=== PATIENT | female | born 1965 | race Caucasian/White ===

== ENCOUNTER → 2018-07-15 10:17 | Outpatient (CLI) | payer BC, SELFPAY ==
[2018-07-18 09:01] LABS: HPV Reflexed? NOT INDICATED
== END ==
PROVIDERS: Visit Provider Obstetrics & Gynecology
DX: Z12.4 Encounter for screening for malignant neoplasm of cervix (principal)
CPT/HCPCS: 88175; G0145

== ENCOUNTER → 2018-09-05 08:18 | Outpatient (CLI) | payer BC, SELFPAY ==
--- NOTE | 2018-09-05 08:20 | BI_ITS ---
MAMMOGRAPHY - BILATERAL SCREENING REASON FOR EXAM: Female, 52 years old. Routine annual screening examination. PERTINENT HISTORY: Aunts with breast cancer. TECHNIQUE: Digital bilateral breast harris (3D mammographic acquisition) in the CC and MLO projections. 2-D mediolateral oblique (MLO) and craniocaudad (CC) views of both breasts were obtained. CAD: Full Field Digital Mammography with Computer Added Detection was performed. COMPARISON: Comparison is made with prior examination dated August 15, 2017 and August 06, 2016. FINDINGS: Breast Composition: There are scattered areas of fibroglandular density. There are no dominant masses or suspicious calcifications. Stable small bilateral axillary lymph nodes. No other significant abnormalities are identified. There has been no significant change since the prior study. BI/SCREENING MAMM (CAD), BILAT IMPRESSION: Stable bilateral screening mammogram. Yearly follow-up mammogram recommended. (A) ASSESSMENT CATEGORY: BIRADS Category 2: Benign. A letter regarding these results will be sent to the patient by the facility within 30 days. Approximately 10% of breast cancers are not detected by mammography. A normal mammogram should not delay biopsy of a clinically suspicious abnormality. [id number] Electronically Signed: Oliverio Sauceda MD at 9:36 EST Tel [phone], Service support ,
== END ==
PROVIDERS: Family Provider Family Medicine; PCP Family Medicine; Referring Provider Obstetrics & Gynecology; Visit Provider Obstetrics & Gynecology
DX: Z12.31 Encounter for screening mammogram for malignant neoplasm of breast (principal)
CPT/HCPCS: 77063; 77067

== ENCOUNTER → 2019-07-30 | Outpatient (CLI) | payer BC, SELFPAY ==
[2019-08-03 16:07] LABS: Age Gdln ACOG Testing 30-65 (.)
[2019-08-03 18:51] LABS: HPV APTIMA, High Risk Negative (Negative); HPV Reflexed? YES, CHARGE PATIENT
== END | disposition home or self-care (01) ==
LOC: LABSPEC 09:25
PROVIDERS: Family Provider Family Medicine; PCP Family Medicine; Referring Provider Obstetrics & Gynecology; Visit Provider Obstetrics & Gynecology
DX: Z12.4 Encounter for screening for malignant neoplasm of cervix (principal)
CPT/HCPCS: 87624; 88175; G0145

== ENCOUNTER → 2019-09-07 07:58 | Outpatient (CLI) | payer BC, SELFPAY ==
--- NOTE | 2019-09-07 08:00 | BI_ITS ---
MAMMOGRAPHY - BILATERAL SCREENING REASON FOR EXAM: Female, 53 years old. Routine annual screening examination. PERTINENT HISTORY: Aunts with breast cancer. TECHNIQUE: Digital bilateral breast alvaro (3D mammographic acquisition) in the CC and MLO projections. 2-D mediolateral oblique (MLO) and craniocaudad (CC) views of both breasts were obtained. CAD: Full Field Digital Mammography with Computer Added Detection was performed. COMPARISON: Comparison is made with prior examination dated September 05, 2018 and August 15, 2017. FINDINGS: Breast Composition: There are scattered areas of fibroglandular density. There are no dominant masses or suspicious calcifications. Stable small benign-appearing bilateral axillary lymph nodes. No other significant abnormalities are identified. There has been no significant change since the prior study. BI/SCREEN MAMM (CAD) W/ALVARO BILAT IMPRESSION: Stable bilateral screening mammogram. Yearly follow-up mammogram recommended. (A) ASSESSMENT CATEGORY: BIRADS Category 2: Benign. A letter regarding these results will be sent to the patient by the facility within 30 days. Approximately 10% of breast cancers are not detected by mammography. A normal mammogram should not delay biopsy of a clinically suspicious abnormality. [id number] Electronically Signed: Oliverio Sauceda, at 10:22 EST , Service support ,
== END ==
PROVIDERS: Family Provider Family Medicine; PCP Family Medicine; Referring Provider Obstetrics & Gynecology; Visit Provider Obstetrics & Gynecology
DX: Z12.31 Encounter for screening mammogram for malignant neoplasm of breast (principal)
CPT/HCPCS: 77063; 77067

== ENCOUNTER → 2020-08-05 09:11 | Outpatient (CLI) | payer BC, SELFPAY ==
[2020-08-10 13:12] LABS: HPV APTIMA, High Risk Negative (Negative)
== END ==
PROVIDERS: PCP Family Medicine; Visit Provider Obstetrics & Gynecology
DX: Z12.4 Encounter for screening for malignant neoplasm of cervix (principal)
CPT/HCPCS: 87624; 88175; G0145

== ENCOUNTER → 2020-09-09 08:15 | Outpatient (CLI) | payer BC, SELFPAY ==
--- NOTE | 2020-09-09 08:18 | BI_ITS ---
MAMMOGRAPHY - BILATERAL SCREENING REASON FOR EXAM: Female, 54 years old. Routine annual screening examination. PERTINENT HISTORY: Aunts with breast cancer. TECHNIQUE: Digital bilateral breast alvaro (3D mammographic acquisition) in the CC and MLO projections. 2-D mediolateral oblique (MLO) and craniocaudad (CC) views of both breasts were obtained. CAD: Full Field Digital Mammography with Computer Added Detection was performed. COMPARISON: Comparison is made with prior study dated 09/07/2019 and 09/05/2018. FINDINGS: Breast Composition: There are scattered areas of fibroglandular density. There are no dominant masses or suspicious calcifications. Stable small benign appearing bilateral axillary lymph nodes. No other significant abnormalities are identified. There has been no significant change since the prior study. BI/SCREEN MAMM (CAD) W/ALVARO BILAT IMPRESSION: Stable bilateral screening mammogram. Yearly follow-up mammogram recommended. (A) ASSESSMENT CATEGORY: BIRADS Category 2: Benign. A letter regarding these results will be sent to the patient by the facility within 30 days. Approximately 10% of breast cancers are not detected by mammography. A normal mammogram should not delay biopsy of a clinically suspicious abnormality. [id number] Electronically Signed: Oliverio Sauceda, at 10:42 EST , Service support ,
== END ==
PROVIDERS: PCP Family Medicine; Referring Provider Obstetrics & Gynecology; Visit Provider Obstetrics & Gynecology
DX: Z12.31 Encounter for screening mammogram for malignant neoplasm of breast (principal)
CPT/HCPCS: 77063; 77067

== ENCOUNTER → 2021-08-07 15:04 | Outpatient (CLI) | payer BC, SELFPAY ==
[2021-08-15 12:34] LABS: HPV APTIMA, High Risk Negative (Negative)
== END ==
PROVIDERS: PCP Family Medicine; Visit Provider Obstetrics & Gynecology
DX: Z12.4 Encounter for screening for malignant neoplasm of cervix (principal)
CPT/HCPCS: 87624; 88175; G0145

== ENCOUNTER → 2021-08-30 15:52 | Outpatient (CLI) | payer BC, SELFPAY ==
--- NOTE | 2021-08-30 | IMM_PTH ---
PATIENT: JOHNNY ALEJANDRE LOC: [facility] U#:[id number] AGE/SX: 59/F ROOM: RE08/30/[address]: Dr. Raghav Amaral MD : 1965 BED: DIS: SPEC #: [id number] RECD: 09/01/21 13:46 STATUS: CHANELL REQ #: [id number] GEORGE: 08/30/21 00:[address]: Raghav Amaral DEPT: IMMUNOHISTOCHEMISTRY RECD BY: Esthela Larsen ENTERED: 09/01/21 13:46 SP TYPE: IMMUNO OTHR DR: Dr. Demond Suarez MD Tissues: A - Uterine cervix, NOS Procedures: p16 (initial) KI-67 (add) PHYSICIAN & INSTITUTION [place] [id number] SPECIMEN INFORMATION: Tissue Source: A ? Cervical biopsy Clinical Info: LGSIL, mild dysplasia Specimen Number: [id number] CPT code: 47297, 12409 METHODOLOGY: Deparaffinized sections of prefer/formalin-fixed tissue or PAP/DQ stained slides are incubated with monoclonal/polyclonal antibodies/oligonucleotide probes. Localization is made via biotin free immunoperoxidase method. Appropriate controls are performed and reacted as expected. Results on target cell population are indicated in the following table: RESULTS: ANTIBODY / CLONE RESULT Block A P16 (E6H4) negative Ki-67 (30-9) positive, very low These tests were developed and their performance characteristics determined by [facility]. They may not have been cleared or approved by the U.S. Food and Drug Administration. The FDA has determined that such clearance or approval is not necessary. The above immunohistochemical/dualISH markers are ordered and reviewed by the Pathologist. INTERPRETATION: A. Cervical biopsy: Focal changes consistent with HPV cytopathic effects. SJ:mi 09/01/2021
--- NOTE | 2021-08-30 | CER_PTH ---
PATIENT: JOHNNY ALEJANDRE LOC: [facility] #:[id number] AGE/SX: 59/F ROOM: RE08/30/[address]: Dr. Raghav Amaral MD : 1965 BED: DIS: SPEC #: [id number] RECD: 08/30/21 16:34 STATUS: CHANELL MCFARLANEJosseline #: [id number] GEORGE: 08/30/21 00:[address]: Raghav Amaral DEPT: SURGICAL PATHOLOGY RECD BY: Garth Estrada ENTERED: 08/31/21 08:57 SP TYPE: CERV OTHR DR: Dr. Demond Suarez MD Tissues: A - Uterine cervix, NOS B - Endocervical Procedures: Surgery Specimen Level IV HEADER OPERATION: Colposcopy PRE-OP DIAGNOSIS: LGSIL, mild dysplasia TISSUE SUBMITTED: A ? Cervical biopsy 1, 5, 7, 11, B - ECC MICROSCOPIC DIAGNOSIS A. Cervix, biopsy: Focal changes consistent with HPV cytopathic effects. Acute and chronic inflammation. See comment. B. ECC: Scant minute fragment of benign endocervical epithelium, negative for dysplasia. CHELI:mi 09/01/2021 COMMENT A. Immunohistochemistry ([id number]) for surrogate HPV marker (p16) supports the above diagnosis. MICROSCOPIC DESCRIPTION Slides are reviewed. GROSS DESCRIPTION A - Received in fixative is one container labeled with the patient's name and designated cervical biopsy 1, 5, 7 and 11. The specimen consists of multiple irregular fragments of light tripathi soft tissue that in aggregate measure 1 x 0.2 x 0.1 cm. The specimen is totally submitted in one cassette. B - Received in fixative is one container labeled with the patient's name and designated ECC. The specimen consists of a scant amount of soft tissue. The specimen is totally submitted for cell block preparation. / CHELI:mi 08/31/21 TC:5 CPT: 10438 x2
== END ==
PROVIDERS: PCP Family Medicine; Visit Provider Obstetrics & Gynecology
DX: R87.622 Low grade squamous intraepithelial lesion on cytologic smear of vagina (LGSIL) (principal)
CPT/HCPCS: 88305; 88341; 88342

== ENCOUNTER → 2021-09-15 14:40 | Outpatient (CLI) | payer BC, SELFPAY ==
--- NOTE | 2021-09-15 14:43 | BI_ITS ---
MAMMOGRAPHY - BILATERAL SCREENING REASON FOR EXAM: Female, 55 years old. Routine annual screening examination. PERTINENT HISTORY: Aunts with breast cancer. TECHNIQUE: Digital bilateral breast alvaro (3D mammographic acquisition) in the CC and MLO projections. 2-D mediolateral oblique (MLO) and craniocaudad (CC) views of both breasts were obtained. CAD: Full Field Digital Mammography with Computer Added Detection was performed. COMPARISON: Comparison is made with prior study dated 09/09/2020 and 09/07/2019. FINDINGS: Breast Composition: There are scattered areas of fibroglandular density. There are no dominant masses or suspicious calcifications. Stable small benign appearing bilateral axillary lymph nodes. No other significant abnormalities are identified. There has been no significant change since the prior study. BI/SCRN MAMM (CAD)W/ALVARO BILAT IMPRESSION: Stable bilateral screening mammogram. Yearly follow-up mammogram recommended. (A) ASSESSMENT CATEGORY: BIRADS Category 2: Benign. A letter regarding these results will be sent to the patient by the facility within 30 days. Approximately 10% of breast cancers are not detected by mammography. A normal mammogram should not delay biopsy of a clinically suspicious abnormality. [id number] Electronically Signed: Oliverio Sauceda MD at 15:20 EST , Service support ,
== END ==
PROVIDERS: PCP Family Medicine; Referring Provider Obstetrics & Gynecology; Visit Provider Obstetrics & Gynecology
DX: Z12.31 Encounter for screening mammogram for malignant neoplasm of breast (principal)
CPT/HCPCS: 77063; 77067

== ENCOUNTER → 2022-08-28 | Outpatient (CLI) | payer BC, SELFPAY ==
[2022-09-04 20:49] LABS: HPV APTIMA, High Risk Negative (Negative)
== END | disposition home or self-care (01) ==
LOC: LABSPEC 15:39
PROVIDERS: PCP Family Medicine; Visit Provider Obstetrics & Gynecology
DX: Z12.4 Encounter for screening for malignant neoplasm of cervix (principal); Z78.0 Asymptomatic menopausal state
CPT/HCPCS: 87624; 88175; G0145

== ENCOUNTER → 2022-09-17 | Outpatient (CLI) | payer BC, SELFPAY ==
--- NOTE | 2022-09-17 13:12 | BI_ITS ---
MAMMOGRAPHY - BILATERAL SCREENING REASON FOR EXAM: Female, 56 years old. Routine annual screening examination. PERTINENT HISTORY: Aunts with breast cancer. TECHNIQUE: Digital bilateral breast alvaro (3D mammographic acquisition) in the CC and MLO projections. 2-D mediolateral oblique (MLO) and craniocaudad (CC) views of both breasts were obtained. CAD: Full Field Digital Mammography with Computer Added Detection was performed. COMPARISON: Comparison is made with prior study dated 06/16/2021 and 09/09/2020. FINDINGS: Breast Composition: There are scattered areas of fibroglandular density. There are no dominant masses or suspicious calcifications. Stable small benign-appearing bilateral axillary lymph nodes. No other significant abnormalities are identified. There has been no significant change since the prior study. BI/SCRN MAMM (CAD)W/ALVARO BILAT IMPRESSION: Stable bilateral screening mammogram. Yearly follow-up mammogram recommended. (A) ASSESSMENT CATEGORY: BIRADS Category 2: Benign. A letter regarding these results will be sent to the patient by the facility within 30 days. Approximately 10% of breast cancers are not detected by mammography. A normal mammogram should not delay biopsy of a clinically suspicious abnormality. [id number] Electronically Signed: Oliverio Sauceda MD at 8:37 EST ,
== END | disposition home or self-care (01) ==
LOC: OPBI 13:11
PROVIDERS: PCP Family Medicine; Referring Provider Obstetrics & Gynecology; Visit Provider Obstetrics & Gynecology
DX: Z12.31 Encounter for screening mammogram for malignant neoplasm of breast (principal)
CPT/HCPCS: 77063; 77067

== ENCOUNTER 2025-06-09 10:00 | Outpatient (RCR) | payer OTHER, MEDICAID, SELFPAY ==
--- NOTE | 2025-04-12 13:47 | HP.PTEVAL_ITS ---
Patient's Visit Information Visit Information Visit Information: JOHNNY ALEJANDRE is a 59 year old F referred to Physical Therapy by Dr. Saeed Jiang DPM with a diagnosis of L achilles tendonitis. Date of Evaluation: 04/12/25 Physical Therapist: Zack Olvera DPT, OCS, CSCS Visit Plan Frequency: 3x /Week Duration: 4-6 Weeks Plan: 3x/week for 3-6 weeks for IE HEP: gastroc /solus streech wall 30 4x 2x/day, ankle circles 20x 2x/day, towel toe curls 40x 2x/day, also to buy heel lift, wear orthotics regularly treat with: US nonthermal L achilles inertion, rollout and strech L gastroc soleus with calcaneal mobs and PROM DF. Teach ecc strength to tolerance for HEP. nsure wearing heel lift and orthotics, consider RPW if not improving. Subjective Subjective: L sided achilles pain. Has been painful for long time, bad for a couple months. New shoees a couple months ago made it worse. Seam may have been rubbing. Has bump on back of L achilles. On and off pain for years. Foot doctor in 2022 gave stretches. has been on steroids and has some stretches she tries to do gastroc on wall 30 3x/day, harder to do with toes on wall. Worse with walking and being on feet. 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 Has boots that she wears to work adn they are comfortable. Steroids have really helped. No regular exercise but walks alot at work. Sleep is OK stiff in am. Has nightsplints and wears them at night and they help. Has orthotics and uses them at times but forgets them at times. Pain L achilles: Pain Intensity (Out of 10): 0 Pain Intensity Range: 0 and 5 Comment: walk alot is worse Objective Objective: L antalgia in gait, avoids push off with L subtly. I gait. Chair and beed trasnfers are I. steeps are reciprocal with pain L descending onto it but able with one rail. Dons/doffs sandals I today, no orhtotics in place but has them at home. Palpable nodule posterior distal L achilles near insertion, tender moderately to touch on that spot. Tightness in achilles with 1 degree DF kne straight adn bent vs 3 degrees on R. aROM ankle otherwise WNL and symmetrical with R. Able to heel raise B without much problem, L heeel raise is painful but able, R is good. heel walk is fine, toe walk is slightly painful on L. strength 4/5 L knee and 4- hip B. strength ankle 4/5 DF, inv, ev without pain B. PF painful with bodyweight. sensation WNL to gross light touch B LE. metatarsals move well as does big toes with 4+/5 strength flexion and ext without pain. Balance/Special Test Scores Lower Extremity Functional Score: 57 Goals Goal 1:: I appropriate HEP of achilles stretching, orthotics and heel lift usee(pt to get hl), to limit future problems Goal Time Frame: 4-6 Weeks Goal 2:: Pain in achilles 2/10 at worst and 75% better Goal Time Frame: 4-6 Weeks Goal 3:: walks and steps without pain in L achilles Goal Time Frame: 4-6 Weeks Goal 4:: EFS score 65 Goal Time Frame: 4-6 Weeks Goal 5:: work without increased pain Goal Time Frame: 4-6 Weeks Rehabilitation Potential Physical Therapy Diagnosis: pain in L achilles limiting comfortable funciton Rehabilitation Potential: Fair Anticipated Interventions Patient/Client Instruction: Educate patient on: Condition and Plan of Care For the Purpose of:: To decrease pain, To increase ROM, To improve nutrient delivery to tissue, To improve muscle performance and motor function, To increase tolerance to activity/condition/position and To improve ability of physical actions for home/community/work/leisure Therapeutic Exercise to Include: Strength training, Flexibilty training, Gait and locomotor training, Passive ROM and Active ROM For the Purpose of:: To decrease pain, To increase ROM, To improve nutrient delivery to tissue, To increase tolerance to activity/condition/position and To improve ability of physical actions for home/community/work/leisure Manual Therapy Techniques to Include: Mobilization, Passive ROM and Soft tissue mobilization For the Purpose of:: To decrease pain, To increase ROM, To improve nutrient delivery to tissue, To improve muscle performance and motor function and To increase tolerance to activity/condition/position Orthotics: Shoe insert Comment: heel lift For the Purpose of:: To decrease pain and To decrease swelling/inflammation Cryotherapy (ice pack, ice massage): Yes Ultrasound (thermal/non thermal): Yes (nonthermal) Comment: RPW For the Purpose of:: To decrease pain, To decrease swelling/inflammation, To increase ROM and To improve nutrient delivery to tissue Text: Thank you for the opportunity to evaluate your patient. For Medicare and Medicare HMO plans, please review the plan of care and approve it. It will need to be FAXED BACK to us at [phone] for Medicare purposes. For Medicare only, by signing this I certify the plan of care. Please let me know if there are questions or concerns regarding this plan of care. Physician Signature: Date:
--- NOTE | 2025-06-09 10:45 | HP.PTDCSUM ---
Discharge Summary D/C summary: It has been my pleasure to treat JOHNNY ALEJANDRE referred by Dr. Saeed Jiang DPM, with the diagnosis of L achilles tendonitis for a total of 18 visit(s). Discharge Date: 06/09/25 Please see the following information for a summary of their discharge status. Subjective Subjective: L foot feels good. Sensitivee but back to wheere it was. R one is PFitis and getting worse. Doctor is getting her orthotics and had cortisonee shot. She is rolling it and massaging it. Injection was 6 weeks ago and it helpd for a day. To doctor next week. L one is as good as it will get without surgery. Continues to stretch it. Pain L achilles: Pain Intensity (Out of 10): Unrated Overall Improvement % Improvement: 100 Objective Objective/Function: 3 DF adn full WNL ROM L ankle today, walking normal on L but antalgic R avoiding push off. Steps are normal on l and without antalgia today. filled LEFS out for just L today. Goals Goal 1:: I appropriate HEP of achilles stretching, orthotics and heel lift usee(pt to get hl), to limit future problems Goal Progress: Goal Met Goal 2:: Pain in achilles 2/10 at worst and 75% better Goal Progress: Goal Met Goal 3:: walks and steps without pain in L achilles Goal Progress: Goal Met Goal 4:: EFS score 65 Goal Progress: Goal Met Goal 5:: work without increased pain Goal Progress: Goal Met left, R worse Plan Plan: d/c to HEP D/C Information Discharge Comments: To doc next week. L doing well, R Pfitis is flaring up. d/c sentence: If there are questions or concerns regarding this patient's physical therapy, please feel free to call me at [phone]. Thank you for the referral of this patient. Sincerely, Zack Olvera, DPT, OCS, CSCS Balance/Gait/Functional tests Balance/Special Test Scores Lower Extremity Functional Score: 67 Improvement % Improvement: 100
== END 2025-06-09 19:00 | disposition home or self-care (01) ==
LOC: PT 10:00
PROVIDERS: PCP Family Medicine; Referring Provider Student in an Organized Health Care Education/Training Program; Visit Provider Student in an Organized Health Care Education/Training Program
DX: M76.61 Achilles tendinitis, right leg (principal); M76.62 Achilles tendinitis, left leg
CPT/HCPCS: 97035; 97110; 97140; 97161; 97164